=== PATIENT | male | born 1935 | race Caucasian/White ===

== ENCOUNTER 2016-03-01 15:02 | Outpatient (CLI) | END 2016-03-01 15:03 | disposition home or self-care (01) ==

== ENCOUNTER 2016-03-16 17:25 | Outpatient (CLI) | payer MEDICARE, OTHER | END 2016-03-16 17:26 | disposition home or self-care (01) | DX: I50.9 Heart failure, unspecified (principal) ==

== ENCOUNTER 2016-03-23 | Outpatient (CLI) | payer MEDICARE, OTHER | END 2016-03-23 03:43 | disposition critical access hospital (66) | CPT/HCPCS: A0425; A0427 ==

== ENCOUNTER 2016-03-23 04:00 | Inpatient (IN) | payer MEDICARE, OTHER ==
[2016-03-23] MEDS ORDERED: HYDROmorphone 1 MG/ML SYRINGE IVP STA (05:28)
[2016-03-23] MEDS ORDERED: HYDROmorphone 1 MG/ML SYRINGE ONE (05:32)
[2016-03-23] MEDS ORDERED: SODIUM CHLORIDE 0.9% 1,000 ML IV SCH (06:00)
[2016-03-23] MEDS: HYDROmorphone 1 MG/ML SYRINGE IVP PRN ×4 (07:14→21:41)
[2016-03-23] MEDS: SODIUM CHLORIDE FLUSH 0.9% 10 ML SYRINGE IVP PRN ×2 (07:14→16:22)
[2016-03-23] MEDS: SODIUM CHLORIDE FLUSH 0.9% 10 ML SYRINGE IVP SCH ×3 (08:36→16:07)
[2016-03-23] MEDS: POLYETHYLENE GLYCOL 3350 17 GM PACKET PO SCH (08:36)
[2016-03-23] MEDS ORDERED: FUROSEMIDE 40 MG/4 ML VIAL IVP ONE ×2 (11:00→16:00)
[2016-03-23] MEDS: DOCUSATE SODIUM 250 MG CAPSULE PO PRN (12:06)
[2016-03-23] MEDS: POTASSIUM CHLORIDE 10 MEQ CAPSULE PO SCH (12:06)
[2016-03-23] MEDS: SPIRONOLACTONE 25 MG TABLET PO SCH (12:07)
[2016-03-23] MEDS: carBAMazepine 200 MG TABLET PO SCH ×2 (14:42→21:29)
[2016-03-24] MEDS ORDERED: FUROSEMIDE 40 MG/4 ML VIAL ONE (08:03)
[2016-03-24] MEDS ORDERED: FUROSEMIDE 20 MG/2 ML VIAL IVP ONE (11:57)
[2016-03-24] MEDS: POLYETHYLENE GLYCOL 3350 17 GM PACKET PO SCH (17:21)
[2016-03-24] MEDS: carBAMazepine 200 MG TABLET PO SCH ×3 (17:21→22:05)
[2016-03-24] MEDS: POTASSIUM CHLORIDE 10 MEQ CAPSULE PO SCH (17:21)
[2016-03-24] MEDS: SODIUM CHLORIDE FLUSH 0.9% 10 ML SYRINGE IVP SCH ×3 (17:21→22:59)
[2016-03-24] MEDS: SPIRONOLACTONE 25 MG TABLET PO SCH (17:22)
[2016-03-24] MEDS: HYDROmorphone 1 MG/ML SYRINGE IVP PRN ×2 (18:49→22:06)
[2016-03-25] MEDS: HYDROmorphone 1 MG/ML SYRINGE IVP PRN (02:12)
[2016-03-25] MEDS: SODIUM CHLORIDE FLUSH 0.9% 10 ML SYRINGE IVP PRN (02:13)
[2016-03-25] MEDS: carBAMazepine 200 MG TABLET PO SCH ×3 (07:02→21:02)
[2016-03-25] MEDS: SODIUM CHLORIDE FLUSH 0.9% 10 ML SYRINGE IVP SCH ×5 (07:31→22:41)
[2016-03-25] MEDS ORDERED: FUROSEMIDE 20 MG/2 ML VIAL IVP ONE (08:00)
[2016-03-25] MEDS ORDERED: LIDOCAINE-PF 2% 10 ML AMP SUBQ ONE (09:30)
[2016-03-25] MEDS ORDERED: DEXAMETHASONE 4 MG/ML VIAL IVP ONE (09:30)
[2016-03-25] MEDS ORDERED: MIDAZOLAM 2 MG/2 ML VIAL IVP ONE (09:30)
[2016-03-25] MEDS ORDERED: ONDANSETRON 4 MG/2 ML VIAL IVP ONE (09:30)
[2016-03-25] MEDS ORDERED: fentaNYL 100 MCG/2 ML VIAL IVP ONE (09:30)
[2016-03-25] MEDS ORDERED: PROPOFOL 200 MG/20 ML VIAL IVP ONE (09:30)
[2016-03-25] MEDS ORDERED: PHENYLEPHRINE 50 MG/5 ML VIAL IV ONE (09:30)
[2016-03-25] MEDS ORDERED: ceFAZolin 1 GM VIAL IV ONE (09:30)
[2016-03-25] MEDS ORDERED: BUPIVACAINE 0.25%-EPI 1:200000 PF 30 ML VIAL SUBQ ONE ×2 (10:21)
[2016-03-25] MEDS ORDERED: LACTATED RINGERS 1,000 ML IV ONE (10:36)
[2016-03-25] MEDS ORDERED: ACETAMINOPHEN 1,000 MG/100 ML 100 ML IV PRN (11:58)
[2016-03-25] MEDS ORDERED: SODIUM CHLORIDE FLUSH 0.9% 10 ML SYRINGE IVP PRN (11:58)
[2016-03-25] MEDS ORDERED: DOCUSATE SODIUM 100 MG CAPSULE PO PRN (11:58)
[2016-03-25] MEDS ORDERED: MORPHINE 2 MG/ML SYRINGE IVP PRN (11:58)
[2016-03-25] MEDS ORDERED: PROCHLORPERAZINE 10 MG/2 ML VIAL IVP PRN (11:58)
[2016-03-25] MEDS ORDERED: ACETAMINOPHEN 325 MG TABLET PO PRN (11:58)
[2016-03-25] MEDS ORDERED: HYDROmorphone 1 MG/ML SYRINGE ONE (12:10)
[2016-03-25] MEDS: POLYETHYLENE GLYCOL 3350 17 GM PACKET PO SCH (14:34)
[2016-03-25] MEDS: WARFARIN 5 MG TABLET PO SCH (14:38)
[2016-03-25] MEDS: SPIRONOLACTONE 25 MG TABLET PO SCH (14:38)
[2016-03-25] MEDS: POTASSIUM CHLORIDE 10 MEQ CAPSULE PO SCH (14:39)
[2016-03-25] MEDS: ENOXAPARIN 80 MG/0.8 ML SYRINGE SUBQ SCH (14:40)
[2016-03-25] MEDS: oxyCOD/ACETAMIN 5 MG/325 MG TABLET PO PRN ×2 (15:34→19:40)
[2016-03-25] MEDS: SODIUM CHLORIDE 0.9% 1,000 ML IV SCH (19:40)
[2016-03-25] MEDS: ceFAZolin 2 GM/50 ML 50 ML IV SCH (19:42)
[2016-03-25] MEDS: SENNA 8.6 MG TABLET PO PRN (21:02)
[2016-03-25] MEDS: DOCUSATE SODIUM 250 MG CAPSULE PO PRN (21:02)
[2016-03-26] MEDS: ceFAZolin 2 GM/50 ML 50 ML IV SCH (03:19)
[2016-03-26] MEDS: SODIUM CHLORIDE FLUSH 0.9% 10 ML SYRINGE IVP SCH ×5 (05:43→20:34)
[2016-03-26] MEDS: SODIUM CHLORIDE 0.9% 1,000 ML IV SCH ×3 (05:43→22:07)
[2016-03-26] MEDS: ENOXAPARIN 80 MG/0.8 ML SYRINGE SUBQ SCH (08:19)
[2016-03-26] MEDS: POTASSIUM CHLORIDE 10 MEQ CAPSULE PO SCH (08:20)
[2016-03-26] MEDS: SPIRONOLACTONE 25 MG TABLET PO SCH (08:20)
[2016-03-26] MEDS: oxyCOD/ACETAMIN 5 MG/325 MG TABLET PO PRN ×2 (08:20→21:57)
[2016-03-26] MEDS: POLYETHYLENE GLYCOL 3350 17 GM PACKET PO SCH (08:20)
[2016-03-26] MEDS: ONDANSETRON 4 MG/2 ML VIAL IVP PRN ×2 (08:33→17:38)
[2016-03-26] MEDS ORDERED: carBAMazepine 200 MG TABLET PO SCH ×2 (09:00→21:00)
[2016-03-26] MEDS: HYDROmorphone 1 MG/ML SYRINGE IVP PRN (10:34)
[2016-03-26] MEDS: WARFARIN 5 MG TABLET PO SCH (15:58)
[2016-03-26] MEDS: SODIUM CHLORIDE FLUSH 0.9% 10 ML SYRINGE IVP PRN (17:39)
[2016-03-27] MEDS: SODIUM CHLORIDE FLUSH 0.9% 10 ML SYRINGE IVP SCH ×3 (01:46→21:45)
[2016-03-27] MEDS: POTASSIUM CHLORIDE 10 MEQ CAPSULE PO SCH (08:39)
[2016-03-27] MEDS: SPIRONOLACTONE 25 MG TABLET PO SCH (08:40)
[2016-03-27] MEDS: ENOXAPARIN 80 MG/0.8 ML SYRINGE SUBQ SCH (08:40)
[2016-03-27] MEDS: POLYETHYLENE GLYCOL 3350 17 GM PACKET PO SCH (08:40)
[2016-03-27] MEDS ORDERED: DOCUSATE SODIUM 250 MG CAPSULE PO ONE (09:30)
[2016-03-27] MEDS ORDERED: SENNA 8.6 MG TABLET PO ONE (09:30)
[2016-03-27] MEDS: SODIUM CHLORIDE 0.9% 1,000 ML IV SCH ×2 (11:37→23:24)
[2016-03-27] MEDS: oxyCOD/ACETAMIN 5 MG/325 MG TABLET PO PRN ×3 (12:54→20:22)
[2016-03-27] MEDS: WARFARIN 5 MG TABLET PO SCH (14:54)
[2016-03-27] MEDS ORDERED: WARFARIN 2.5 MG TABLET PO SCH (16:00)
[2016-03-27] MEDS: carBAMazepine ER 200 MG TABLET PO SCH (20:24)
[2016-03-28] MEDS: SODIUM CHLORIDE FLUSH 0.9% 10 ML SYRINGE IVP SCH ×3 (07:00→21:28)
[2016-03-28] MEDS: POLYETHYLENE GLYCOL 3350 17 GM PACKET PO SCH (09:43)
[2016-03-28] MEDS ORDERED: BISACODYL 10 MG SUPP PR ONE (09:45)
[2016-03-28] MEDS: DOCUSATE SODIUM 250 MG CAPSULE PO PRN (09:47)
[2016-03-28] MEDS: POTASSIUM CHLORIDE 10 MEQ CAPSULE PO SCH (09:47)
[2016-03-28] MEDS: oxyCOD/ACETAMIN 5 MG/325 MG TABLET PO PRN ×2 (09:48→16:04)
[2016-03-28] MEDS: SENNA 8.6 MG TABLET PO PRN (09:51)
[2016-03-28] MEDS: carBAMazepine ER 200 MG TABLET PO SCH ×2 (09:51→21:21)
[2016-03-28] MEDS: ENOXAPARIN 80 MG/0.8 ML SYRINGE SUBQ SCH (11:14)
[2016-03-28] MEDS: SPIRONOLACTONE 25 MG TABLET PO SCH (11:14)
[2016-03-28] MEDS: SODIUM CHLORIDE 0.9% 1,000 ML IV SCH ×2 (12:20→21:21)
[2016-03-28] MEDS: HYDROmorphone 1 MG/ML SYRINGE IVP PRN (12:23)
[2016-03-28] MEDS ORDERED: WARFARIN 2.5 MG TABLET PO SCH (14:00)
[2016-03-29] MEDS: oxyCOD/ACETAMIN 5 MG/325 MG TABLET PO PRN ×2 (05:38→09:55)
[2016-03-29] MEDS: SODIUM CHLORIDE FLUSH 0.9% 10 ML SYRINGE IVP SCH (05:48)
[2016-03-29] MEDS: SODIUM CHLORIDE 0.9% 1,000 ML IV SCH ×2 (05:51→09:55)
[2016-03-29] MEDS: SPIRONOLACTONE 25 MG TABLET PO SCH (08:05)
[2016-03-29] MEDS: POTASSIUM CHLORIDE 10 MEQ CAPSULE PO SCH (08:05)
[2016-03-29] MEDS: carBAMazepine ER 200 MG TABLET PO SCH (08:06)
[2016-03-29] MEDS: POLYETHYLENE GLYCOL 3350 17 GM PACKET PO SCH (08:06)
[2016-03-29] MEDS: ENOXAPARIN 80 MG/0.8 ML SYRINGE SUBQ SCH (08:06)
[2016-03-29] MEDS: DOCUSATE SODIUM 250 MG CAPSULE PO PRN (08:17)
[2016-03-29] MEDS: SENNA 8.6 MG TABLET PO PRN (08:17)
== END 2016-03-29 13:12 | DRG 481 ==
PROC: 30233L1 Transfusion of Nonautologous Fresh Plasma into Peripheral Vein, Percutaneous Approach (ICD-10-PCS; principal; 2016-03-23)
PROC: 0QS706Z Reposition Left Upper Femur with Intramedullary Internal Fixation Device, Open Approach (ICD-10-PCS; principal; 2016-03-23)
PROC: 30233N1 Transfusion of Nonautologous Red Blood Cells into Peripheral Vein, Percutaneous Approach (ICD-10-PCS; 2016-03-25)
DX: S72.142A Displaced intertrochanteric fracture of left femur, initial encounter for closed fracture (principal); I50.9 Heart failure, unspecified; I48.91 Unspecified atrial fibrillation; N17.9 Acute kidney failure, unspecified; G47.30 Sleep apnea, unspecified; I50.22 Chronic systolic (congestive) heart failure; N40.0 Benign prostatic hyperplasia without lower urinary tract symptoms; C90.00 Multiple myeloma not having achieved remission; E87.1 Hypo-osmolality and hyponatremia; I48.2 Chronic atrial fibrillation; N18.9 Chronic kidney disease, unspecified; R53.83 Other fatigue; D63.1 Anemia in chronic kidney disease; I27.2 Other secondary pulmonary hypertension; Z95.2 Presence of prosthetic heart valve; Z79.01 Long term (current) use of anticoagulants; W01.0XXA Fall on same level from slipping, tripping and stumbling without subsequent striking against object, initial encounter; Z91.81 History of falling; Y92.002 Bathroom of unspecified non-institutional (private) residence as the place of occurrence of the external cause; Z79.899 Other long term (current) drug therapy; R26.0 Ataxic gait; G50.0 Trigeminal neuralgia; G62.0 Drug-induced polyneuropathy; Z95.4 Presence of other heart-valve replacement; T45.1X5D Adverse effect of antineoplastic and immunosuppressive drugs, subsequent encounter; F32.9 Major depressive disorder, single episode, unspecified; N40.1 Benign prostatic hyperplasia with lower urinary tract symptoms; R35.0 Frequency of micturition; R39.15 Urgency of urination; G47.33 Obstructive sleep apnea (adult) (pediatric); F51.8 Other sleep disorders not due to a substance or known physiological condition; K59.09 Other constipation; H54.7 Unspecified visual loss; H91.90 Unspecified hearing loss, unspecified ear; M19.90 Unspecified osteoarthritis, unspecified site; F41.9 Anxiety disorder, unspecified; K74.60 Unspecified cirrhosis of liver; G89.29 Other chronic pain; M54.9 Dorsalgia, unspecified; S50.812A Abrasion of left forearm, initial encounter; R41.0 Disorientation, unspecified; T42.1X5A Adverse effect of iminostilbenes, initial encounter; G25.1 Drug-induced tremor